=== PATIENT | male | born 1940 | race Caucasian/White ===

== ENCOUNTER 2017-05-04 20:04 | Outpatient (CLI) | payer MEDICARE, OTHER | END 2017-05-04 20:05 | disposition critical access hospital (66) | LOC: EMS 20:04 | PROVIDERS: ATTEND Surgery | DX: R53.1 Weakness (principal) | CPT/HCPCS: A0425; A0429 ==

== ENCOUNTER 2017-05-04 20:21 | Inpatient (IN) | payer MEDICARE, OTHER ==
--- NOTE | 2017-05-04 20:37 | ED Physician Documentation ---
PD HPI FOCAL NEURO - Stated complaint Stated Complaint: ALT LOC - Chief complaint Chief Complaint: Neuro - History obtained from History obtained from: Patient - History of Present Illness Timing - onset: Enter time (16:00), Today Timing - duration: Hours Timing - details: Still present, Still present in ED Time of symptom onset unknown: Time of onset unknown (last "normal" 13:00) Severity of deficit: Moderate Weakness: Face, Arm, Leg, Left Numbness: Face, Left Associated symptoms: Neck pain. No: Headache, Nausea / vomiting, Fall, Head injury, Chest pain, Back pain Contributing factors: negative: Anticoagulated, Vascular dz, Atrial fibrillation Baseline status: positive: A&OX3, ambulatory, indep Similar symptoms before: Has not had sx before Recently seen: Not recently seen - Additional information Additional information: drove to [facility] from [place], [place] today. At approximately 1 PM today, he got out of the car and had no deficits, felt baseline state of health. At approximately 3-4 PM today, he got out of the car again in [place], felt lower extremity weakness. He isn't confident if it was just the left side or bilateral ("I wasn't really paying attention", per patient). Patient had difficulty, due to this weakness, ambulating but managed, with family's help, to check in to the hotel. He then took a nap, awoke approximately 6:30 PM tonight with ongoing LLE weakness, and then noticed LUE weakness, left facial numbness, left facial droop, and mildly slurred speech. Denies headache. He notes posterior neck pain which he attributes to the long hours of driving today. Review of Systems Constitutional: reports: Reviewed and negative Eyes: reports: Reviewed and negative Ears: reports: Reviewed and negative Nose: reports: Reviewed and negative Throat: reports: Reviewed and negative Cardiac: reports: Reviewed and negative Respiratory: reports: Dyspnea. denies: Cough GI: reports: Reviewed and negative : reports: Reviewed and negative Skin: reports: Reviewed and negative Musculoskeletal: reports: Neck pain. denies: Back pain, Extremity pain, Extremity swelling Neurologic: reports: Focal weakness, Numbness, Difficulty speaking. denies: Generalized weakness, Confused, Altered mental status, Headache, Head injury PD PAST MEDICAL HISTORY - Past Medical History Past Medical History: Yes Cardiovascular: Hypertension - Past Surgical History Past Surgical History: No - Present Medications Home Medications: Ambulatory Orders Medication Instructions Recorded Confirmed Aspirin 81 mg PO DAILY 05/04/17 05/05/17 Losartan [Cozaar] 100 mg PO DAILY 05/04/17 05/05/17 Atorvastatin [Lipitor] 40 mg PO QPM #30 tablet 05/05/17 Clopidogrel Bisulfate [Clopidogrel] 75 mg PO DAILY #30 tablet 05/05/17 - Allergies Allergies/Adverse Reactions: Allergies Allergy/AdvReac Type Severity Reaction Status Date / Time No Known Drug Allergies Allergy Verified 05/04/17 20:36 - Living Situation Living Situation: reports: With spouse/s.o. Living Arrangement: reports: At home - Social History Does the pt smoke?: No PD ED PE NORMAL - Vitals Vital signs reviewed: Yes - General General: Alert and oriented X 3, No acute distress, Well developed/nourished - HEENT HEENT: Atraumatic, PERRL, EOMI, Moist mucous membranes - Neck Neck: Supple, no meningeal sign - Cardiac Cardiac: RRR, No murmur, No gallop, No rub - Respiratory Respiratory: No respiratory distress, Clear bilaterally - Abdomen Abdomen: Soft, Non tender - Back Back: No CVA TTP - Derm Derm: Normal color, Warm and dry - Extremities Extremities: Normal ROM s pain, No edema - Neuro Neuro: Alert and oriented X 3 PD ED PE EXPANDED - Neuro Neuro: Weakness (LUE, LLE (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 mild drift both left upper and left lower extremities. ), CN deficit (left facial droop ( lower face only), decreased LTS (lower face only)), Dysarthria NIHSS - Time Time: 20:35 - Level of Consciousness Level of consciousness: (0) Alert, Keenly responsive LOC Questions: (0) Answers both Q's correct LOC Commands: (0) Performs both correctly - Gaze Best Gaze: (0) Normal - Visual Visual: (0) No loss - Facial Palsy Facial Palsy: (1) Minor paralysis - Motor Arms (both separate) Motor Arm (right): (0) No drift Motor Arm (left): (1) Drift - Motor Legs (both separate) Motor Leg (right): (0) No drift Motor Leg (left): (1) Drift - Limb Ataxia Limb Ataxia: (0) Absent - Sensory Sensory: (1) Onjp-wg-egpqjpzn loss (mild decreased LTS left face) - Best Language Best Language: (0) No aphasia - Dysarthria Dysarthria: (1) Cgzr-tm-pffvxapr dysarthria - Extinction and Inattention (formally neg Extinction and inattention: (0) No abnormality - Total Score/Results Total Score/Result: 5 Results - Vitals Vitals: Oxygen O2 Source Room air - EKG (time done) No standard instances Rate: Rate (enter#) (68) Rhythm: NSR [place]: Normal Intervals: Normal [place] QRS: Normal Ischemia: Normal ST segments Other comments: Other comments (PAC) - Labs Labs: Laboratory Tests 05/04/17 05/04/17 05/04/17 21:06 21:06 21:06 WBC 8.2 RBC 4.40 L Hgb 13.8 L Hct 40.1 L MCV 91.1 MCH 31.4 H MCHC 34.5 RDW 12.9 Plt Count 187 MPV 9.6 Neut # 4.8 Lymph # 2.2 Amador # 0.8 Eos # 0.2 Baso # 0.1 Absolute Nucleated RBC 0.00 Nucleated RBCs 0.0 Sodium 138 Potassium 4.0 Chloride 106 Carbon Dioxide 23 Anion Gap 9.0 BUN 24 H Creatinine 1.4 H Estimated GFR (MDRD) 49 L Glucose 156 H Calcium 9.1 Troponin I < 0.04 - Rads (name of study) chest xray Radiology: Prelim report reviewed, See rad report CT head Radiology: Prelim report reviewed, See rad report PD MEDICAL DECISION MAKING - ED course Complexity details: reviewed results, re-evaluated patient (Deficits remain on reevaluation (after tests resulted), no change since initial exam as documented above. D/W Dr. Garcia, will admit to [facility] for further observation/testing.), considered differential, d/w patient - TPA CVA checklist Inclusion crititeria: positive: Sig neuro deficit, CT no bleed. negative: Onset know < 4.5 hr Departure - Departure Disposition: 66 [facility] DC/Xfer Clinical Impression: Cerebrovascular accident (CVA) Qualifiers: Qualified Code(s): I63.9 - Cerebral infarction, unspecified Condition: Stable Discharge Date/Time: 05/04/17 22:54
[2017-05-04 21:22] LABS: CALCIUM 9.1 mg/dL (8.5-10.3); CREATININE 1.4 mg/dL (0.6-1.2)
[2017-05-04 21:28] LABS: BASOPHILS # (AUTO) 0.1 10^3/uL (0.0-0.1); BASOPHILS % (AUTO) 1.1 %; EOSINOPHILS # (AUTO) 0.2 10^3/uL (0.0-0.7); HCT - HEMATOCRIT 40.1 % (42.0-52.0); HGB - HEMOGLOBIN 13.8 g/dL (14.0-18.0); LYMPHOCYTES # (AUTO) 2.2 10^3/uL (1.5-3.5); LYMPHOCYTES % (AUTO) 27.2 %; MEAN CORPUSCULAR HEMOGLOBIN 31.4 pg (27.0-31.0); MEAN CORPUSCULAR HGB CONC 34.5 g/dL (32.0-36.0); MEAN CORPUSCULAR VOLUME 91.1 fL (80.0-94.0); MEAN PLATELET VOLUME 9.6 fL (7.4-11.4); MONOCYTES # (AUTO) 0.8 10^3/uL (0.0-1.0); MONOCYTES % (AUTO) 10.2 %; NEUTROPHILS # (AUTO) 4.8 10^3/uL (1.5-6.6); NEUTROPHILS % (AUTO) 58.5 %; RED CELL DISTRIBUTION WIDTH 12.9 % (12.0-15.0); UNCORRECTED WHITE BLOOD COUNT 8.2 x10^3/uL; WHITE BLOOD COUNT 8.2 x10^3/uL (4.8-10.8)
--- NOTE | 2017-05-04 21:44 | CT Preliminary Report ---
Exam: CT Head W/O IMPRESSION: Generalized age-related cortical atrophic changes without evidence of acute intracranial abnormality. [facility] SITE ID: [id number]
--- NOTE | 2017-05-04 21:46 | XRAY Preliminary Report ---
Exam: XR Chest 2 View PA/LAT IMPRESSION: No acute disease evident. [facility] SITE ID: [id number]
--- NOTE | 2017-05-04 21:47 | CT Report ---
EXAM: CT HEAD EXAM DATE: 05/04/2017 09:29 PM. CLINICAL HISTORY: Left-sided weakness. COMPARISON: None. TECHNIQUE: Multiaxial CT images were obtained from the foramen magnum to the vertex. IV contrast: Non e. Reformats: Coronal. In accordance with CT protocol optimization, one or more of the following dose reduction techniques w ere utilized for this exam: automated exposure control, adjustment of mA and/or KV based on patient s ize, or use of iterative reconstructive technique. FINDINGS: Parenchyma: No intraparenchymal hemorrhage. No evidence of mass, midline shift, or CT findings of acu te infarction. Handy-white differentiation is distinct. Extraaxial Spaces: Normal for age. No subdural or epidural collections identified. Ventricles: The ventricles and cortical sulci are enlarged, consistent with age-related tissue loss. Sinuses: Imaged paranasal sinuses, orbits, and mastoids show no significant abnormality. Bones: No evidence of fracture or calvarial defect. Other: Mild chronic microangiopathic white matter changes are evident. IMPRESSION: Generalized age-related cortical atrophic changes without evidence of acute intracranial abnormality. [facility] Referring Provider Line: [phone] SITE ID: [id number]
--- NOTE | 2017-05-04 21:48 | XRAY Report ---
EXAM: CHEST RADIOGRAPHY EXAM DATE: 05/04/2017 09:37 PM. CLINICAL HISTORY: Left-sided weakness. COMPARISON: None. TECHNIQUE: 2 views. FINDINGS: Lungs/Pleura: No focal opacities evident. No pleural effusion. No pneumothorax. Normal volumes. Mediastinum: Heart and mediastinal contours are unremarkable. Other: Mild, likely chronic, compression fractures of the superior endplates of 2 lower thoracic angoon ents noted. IMPRESSION: No acute disease evident. [facility] Referring Provider Line: [phone] SITE ID: [id number]
[2017-05-04] MEDS ORDERED: HYDROcod/ACETAM 10 MG/325 MG TABLET PO PRN (22:20)
[2017-05-04] MEDS ORDERED: SODIUM CHLORIDE FLUSH 0.9% 10 ML SYRINGE IVP PRN (22:20)
[2017-05-04] MEDS ORDERED: ACETAMINOPHEN 325 MG TABLET PO PRN (22:20)
[2017-05-04] MEDS ORDERED: HYDROcod/ACETAM 5/325 MG TABLET PO PRN (22:20)
[2017-05-05] MEDS: SODIUM CHLORIDE 0.9% 1,000 ML IV SCH ×2 (00:05→08:23)
[2017-05-05] MEDS: SODIUM CHLORIDE FLUSH 0.9% 10 ML SYRINGE IVP SCH ×2 (00:06→11:13)
--- NOTE | 2017-05-05 02:34 | Ultrasound Preliminary Report ---
Exam: US Carotid Doppler Complete IMPRESSION: 1. Bilateral calcified carotid plaquing, left worse than right. No significant stenosis seen. 2. Antegrade flow in both vertebral arteries. Validated velocity measurements with angiographic measurements and velocity criteria are extrapolated from diameter data as defined by the Society of Radiologists in Ultrasound Consensus Conference Radi ology 2003; 229;340-346. [facility] SITE ID: [id number]
--- NOTE | 2017-05-05 02:52 | Ultrasound Report ---
EXAM: CAROTID DOPPLER ULTRASOUND EXAM DATE: 05/05/2017 01:23 AM. CLINICAL HISTORY: Left body and face weak. COMPARISON: None. TECHNIQUE: Real-time sonographic vascular imaging was performed by the image editor through the caroti d arterial system with a linear transducer utilizing color-flow, Doppler flow and spectral analysis. Multiple branch customer service representative static images were saved for review. FINDINGS: There is calcified plaque in the common carotid arteries, carotid bulbs, and proximal internal caroti d arteries bilaterally, left worse than right. Stenosis is less than 50% bilaterally. Antegrade flow is seen in both vertebral arteries. Irregular heart beat is noted. Right: RCCA Prox: PSV 106 cm/sec. RCCA Dist: PSV 89.8 cm/sec, EDV 15.1 cm/sec. RECA: PSV 143 cm/sec. R Bulb: PSV 56.5 cm/sec, EDV 11.1 cm/sec, ICA/CCA ratio 0.6. MITCHEL Prox: PSV 42.5 cm/sec, EDV 9.8 cm/sec, ICA/CCA ratio 0.5. MITCHEL Mid: PSV 59.1 cm/sec, EDV 13.6 cm/sec, ICA/CCA ratio 0.7. MITCHEL Dist: PSV 50.3 cm/sec, EDV 11.1 cm/sec, ICA/CCA ratio 0.6. RVA: PSV 19.8 cm/sec. RVA flow direction: Antegrade. Left: LCCA Prox: PSV 91.4 cm/sec. LCCA Dist: PSV 65.4 cm/sec, EDV 14.9 cm/sec. LECA: PSV 196 cm/sec. L Bulb: PSV 51.0 cm/sec, EDV 13.6 cm/sec, ICA/CCA ratio 0.8. LICA Prox: PSV 56.9 cm/sec, EDV 12.3 cm/sec, ICA/CCA ratio 0.9. LICA Mid: PSV 101.4 cm/sec, EDV 21.0 cm/sec, ICA/CCA ratio 1.6. LICA Dist: PSV 85.9 cm/sec, EDV 16.1 cm/sec, ICA/CCA ratio 1.3. LVA: PSV 15.5 cm/sec. LVA flow direction: Antegrade. Other: None. IMPRESSION: 1. Bilateral calcified carotid plaquing, left worse than right. No significant stenosis seen. 2. Antegrade flow in both vertebral arteries. Validated velocity measurements with angiographic measurements and velocity criteria are extrapolated from diameter data as defined by the Society of Radiologists in Ultrasound Consensus Conference Radi ology 2003; 229;340-346. [facility] Referring Provider Line: [phone] SITE ID: [id number]
[2017-05-05 03:15] LABS: BASOPHILS # (AUTO) 0.1 10^3/uL (0.0-0.1); BASOPHILS % (AUTO) 0.9 %; EOSINOPHILS # (AUTO) 0.2 10^3/uL (0.0-0.7); EOSINOPHILS % (AUTO) 3.2 %; HCT - HEMATOCRIT 38.9 % (42.0-52.0); HGB - HEMOGLOBIN 13.4 g/dL (14.0-18.0); LYMPHOCYTES # (AUTO) 1.9 10^3/uL (1.5-3.5); LYMPHOCYTES % (AUTO) 27.1 %; MEAN CORPUSCULAR HEMOGLOBIN 31.6 pg (27.0-31.0); MEAN CORPUSCULAR HGB CONC 34.4 g/dL (32.0-36.0); MEAN CORPUSCULAR VOLUME 91.9 fL (80.0-94.0); MEAN PLATELET VOLUME 9.6 fL (7.4-11.4); MONOCYTES # (AUTO) 0.7 10^3/uL (0.0-1.0); MONOCYTES % (AUTO) 9.7 %; NEUTROPHILS # (AUTO) 4.2 10^3/uL (1.5-6.6); NEUTROPHILS % (AUTO) 59.1 %; RED BLOOD COUNT 4.24 10^6/uL (4.70-6.10); RED CELL DISTRIBUTION WIDTH 12.7 % (12.0-15.0); UNCORRECTED WHITE BLOOD COUNT 7.1 x10^3/uL; WHITE BLOOD COUNT 7.1 x10^3/uL (4.8-10.8)
--- NOTE | 2017-05-05 03:16 | HISTORY & PHYSICAL EXAMINATION ---
DATE OF ADMISSION: 05/04/2017 PRIMARY CARE PROVIDER: In [place], [place]. ADMITTING PROVIDER: Shikha Garcia MD. CHIEF COMPLAINT: Right body weakness. HISTORY OF PRESENT ILLNESS: He is an exceedingly pleasant, jovial 77-year-old morbidly obese man who drove from [place], [place] today so that he could be at his nephew's senior care constitution party here a t the [employer]. 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 He drove all the way here without any difficulty. He has chronic back pain and has had 3 back surgeries, but pain has been well controlled to his satisfaction for quite some time now. He got out of the car to take a stroll around the car and fill up with gas around 1 in the afternoon and did just fine. Wh en he arrived in [place] in the late afternoon, he realized that his legs were "weak," but he did not feel like 1 leg was necessarily weaker than the other. He went inside the hotel to take a nap and when he woke up, realized that not only was his left leg now weak, but his left body was as well. It took quite some time for the to cajole him into calling EMS for them to bring him here to the ospital. In our emergency room, he has been evaluated by Dr. Soto and he definitely has a left faci al droop, slight dysarthria, and left body weakness. He is hypertensive, between 170-200 systolic. Af ebrile. An initial CT of the head is negative. He is now admitted for stroke. He has no history of at rial fibrillation, congestive heart failure, but does have a history of "multiple small infarcts" on previous MRI. 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 In evaluating this movement d isorder with EEGs, sleep studies, MRIs, neurologists, so far no one has been able to give him the adela gnosis of what this movement disorder is. He just "freezes," but the MRI did show multiple microinfar cts, as far as he knows. He is due to see a neurologist with [facility] in May. PAST MEDICAL HISTORY 1. Hypertension. 2. Morbid obesity for decades. 3. Two episodes of diverticulitis, with the last one resulting in a bowel resection. 4. Bilateral shoulder arthroplasties. 5. Three lumbar spinal surgeries. He actually broke his back the day before his second marriage. He m anaged to cajole those doctors into letting him go to his wedding and then he promptly had such an in tense back spasm that he ended up back in the hospital on his wedding night. 6. Obstructive sleep apnea. ALLERGIES: NO KNOWN DRUG ALLERGIES. MEDICATIONS 1. Cozaar 100 mg a day. 2. Aspirin 81 mg a day. SOCIAL HISTORY: Never smoked and used to drink way too much. He is cagey about telling me how much, b ut he says that he was drunk everyday of his life, but stopped drinking at the age of 42. His poison of choice was beer. 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 He is from his first and to his second for 13 yea rs. He has 4 children from his first , and they lived in [place] and [place]. He has no history of recreational substance abuse. He is a DO NOT RESUSCITATE, DO NOT INTUBATE. FAMILY HISTORY: Both of his parents in their 90s of old age. He has 6 sisters. They all alive an d they are all older than him with only one baby sister. As far as he knows, none of them have had a stroke, heart attack, congestive heart failure, emphysema, cancer, etc. His 4 children are healthy. REVIEW OF SYSTEMS GENERAL: Shows him to be an elderly gentleman who has been slowing down with regards to mobility over the last few years, but is still completely independent with activities of daily living with no ante cedent fever, sweats, or unexpected weight changes. ENT: He is deaf, wears glasses, and denies glaucoma or cataracts. He usually does not have any proble ms with speech or swallowing. PULMONARY: Denies coughing, wheezing, chest congestion. CARDIAC: Denies angina, palpitations, heart murmur, leg edema, orthopnea. GASTROINTESTINAL: Loves his food and has absolutely no problem with eating he tells me. Since he has had his colon resection, bowels have become quite nicely normal, and he has no abdominal discomfort. No blood in his stool. GENITOURINARY: Stream has slowed down, but he has no urgency, frequency, dysur ia. He does not get up at night. He gets up at 5 every day anyway and that is when he goes to the bat hroom. No hematuria or flank pain. JOINTS: Ache. Very stiff after a long car ride and that is why he felt initially that his left leg we akness was that. As already stated, his back has had problems in the past, but he feels that his pain and discomfort are adequately controlled for a gentleman his size and age. Shoulders and hands can b e quite stiff and aching, but again they do not limit him. SKIN: No new rashes, no new moles. PSYCH: Denies anxiety, depression. His murmurs that he "gives" anxiety and depression. 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 Memory loss is occasional and mild, but not alarming to him. 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 PHYSICAL EXAMINATION VITAL SIGNS: His initial blood pressure was 203/85 with a temperature of 36.6, pulse 77, respirations 18, 97% on room air. His highest systolic in the emergency room was 210, and on my exam at this time he is 166/94. GENERAL: He is a tall, morbidly obese white male who looks his stated age with his at the bedsid e in no acute distress. HEAD AND NECK: Remarkable for left facial droop, slightly dry oral mucosa. Speech is slightly dysarth mohan. Neck is supple. No carotid bruits. LUNGS: Clear to auscultation and percussion in quite a large chest wall cavity. CARDIOVASCULAR: PMI is normally placed with a regular rate and rhythm and a soft systolic murmur, byron y faint at the left lower sternal border and apex. ABDOMEN: Hugely obese, soft, nontender. No hernias or masses. Normal bowel sounds. EXTREMITIES: Warm without clubbing, cyanosis, or edema. On the left anterior harris, he has 1 small exc oriation where he bumped his harris, but he cannot remember where. NEUROLOGICAL: He has left body weakness and left facial droop. Weakness is about to 2+/5+. Right body is normal at 5+/5+. He is alert, oriented to person and place. Lucid historian. Remarkably intact co nsidering his events. He says that he does feel unusually emotional and that is weird for him. He has had a chest x-ray, head CT. Chest x-ray shows no acute disease and head CT with generalized ag e-related cortical atrophic changes. Sodium 138, potassium 4, BUN 24, creatinine 1.4, glucose 156, tr oponin less than 0.04. White cell count is 8.2, hemoglobin 13.8, hematocrit 40.4, MCV 91, platelets 1 87. IMAGING: EKG shows sinus rhythm with a PAC. Diffuse borderline low voltage in the limb leads. Otherwi se normal EKG. ASSESSMENT AND PLAN 1. 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 Admit to Med/Surg with telemetry. A llow permissive hypertension with a goal systolic less than 185-188. Aspirin to continue. Statin to b e added. MRI of head in the morning. Carotid Dopplers and CT head angiogram in the morning. The angio gram may be contraindicated depending on how well his creatinine responds to IV fluids. 2. Hypertension. Currently not at goal, but again allow permissive hypertension in the face of a stro ke. We will resume his Cozaar, but not much else. 3. Obstructive sleep apnea. I have notified respiratory therapy and his is bringing his mask in from the car. 4. DO NOT INTUBATE, DO NOT RESUSCITATE status. 5. Deep venous thrombosis prophylaxis with Lovenox. JOB #: [id number] EXT JOB #:[id number]
[2017-05-05 03:26] LABS: ALBUMIN/GLOBULIN RATIO 1.2 (1.0-2.2); BILIRUBIN,TOTAL 0.4 mg/dL (0.2-1.0); CALCIUM 8.5 mg/dL (8.5-10.3); CREATININE 1.3 mg/dL (0.6-1.2); POTASSIUM 3.8 mmol/L (3.5-5.0); TOTAL PROTEIN 6.5 g/dL (6.7-8.2)
[2017-05-05 03:32] LABS: CHOL/HDL RATIO 5.1 (<5.0); CHOLESTEROL 180 mg/dL; HDL CHOLESTEROL 35 mg/dL; LDL/HDL RATIO 3.2 (<3.6); TRIGLYCERIDES 172 mg/dL; VLDL CHOLESTEROL 34 mg/dL
[2017-05-05] MEDS ORDERED: ASPIRIN 325 MG TABLET PO SCH (08:00)
[2017-05-05] MEDS ORDERED: POLYETHYLENE GLYCOL 3350 17 GM PACKET PO SCH (09:00)
[2017-05-05] MEDS ORDERED: LOSARTAN 50 MG TABLET PO SCH (09:00)
--- NOTE | 2017-05-05 09:10 | PROVIDER PROGRESS NOTE ---
Subjective - Prog Note Date Prog Note Date: 05/05/17 Prog Note Time: 09:07 Current Medications - Current Medications Current Medications: Active Medications Generic Name Dose Route Start Last Admin Trade Name Freq PRN Reason Stop Dose Admin Acetaminophen 650 mg 05/04/17 22:20 Tylenol PO Q4HR PRN Pain 1 to 4 Acetaminophen/Hydrocodone Bitart 1 tab 05/04/17 22:20 Ideal 5/325 PO Q4HR PRN Pain 5 to 7 Acetaminophen/Hydrocodone Bitart 1 tab 05/04/17 22:20 Ideal 10 Mg/325 Mg PO Q4HR PRN Pain 8 to 10 Aspirin 325 mg 05/05/17 08:00 05/05/17 08:18 Yue PO 325 mg DAILYWM MADHURI Administration Atorvastatin Calcium 80 mg 05/05/17 21:00 Lipitor PO QPM MADHURI Sodium Chloride 1,000 mls @ 125 mls/hr 05/04/17 23:45 05/05/17 08:23 Normal Saline 0.9% IV 125 mls/hr .Q8H MADHURI Administration Losartan Potassium 100 mg 05/05/17 09:00 05/05/17 08:18 Cozaar PO 100 mg DAILY MADHURI Administration Polyethylene Glycol 17 gm 05/05/17 09:00 05/05/17 08:19 Miralax PO 17 gm DAILY MADHURI Administration Sodium Chloride 10 ml 05/04/17 22:20 Normal Saline Flush 0.9% IVP PRN PRN NEEDED PER PROVIDER ORDERS Sodium Chloride 10 ml 05/05/17 06:00 05/05/17 00:06 Normal Saline Flush 0.9% IVP 10 ml Q8HR MADHURI Administration Aspirin 81 mg PO DAILY 05/04/17 Losartan [Cozaar] 100 mg PO DAILY 05/04/17 Objective - Vital Signs/Intake & Output Reviewed Vital Signs: Yes Vital Signs: Vital Signs x48h Temp Pulse Resp BP Pulse Ox 05/05/17 08:42 36.7 C 64 19 165/91 H 98 Intake & Output: Intake & Output 05/02/17 05/03/17 05/04/17 05/05/17 23:59 23:59 23:59 23:59 Intake Total 1026 Balance 1026 - Objective General Appearance: positive: No acute distress, Other (sitting up in chair eating breakfast , at bedside no acute distress articulate with speech, no dysarthria nor word finding trouble currently) Eyes Bilateral: positive: PERRL, EOMI, Other (glasses, no field deficit) Respiratory: positive: No respiratory distress, Breath sounds nml Cardiovascular: positive: Regular rate & rhythm, No murmur, Other (tele: not yet on (ordered_) Abdomen: positive: Other (generous absomen, + BS, soft nontender) Neurologic/Psychiatric: positive: Oriented x3. negative: Motor nml (RUE strength RLE strength 5/5 LLE strenght hip flxn, dorsi/plantar flxn, knee flex/ext 5/5 LUE strength chairman president and chief executive officer , add/ab duction shouler, elbow flex/ext all 5/5 . Rapid alt movements; finger to nose and finger serially to thumb on L is somewhat awkward c/w right L protatro drift) - Lab Results Fish Bones: 05/05/17 03:08 05/05/17 03:08 Other Labs: Lab Results x24hrs 05/05/17 05/05/17 05/05/17 Range/Units 03:08 03:08 03:08 WBC (4.8-10.8) x10^3/uL RBC (4.70-6.10) 10^6/uL Hgb (14.0-18.0) g/dL Hct (42.0-52.0) % MCV (80.0-94.0) fL MCH (27.0-31.0) pg MCHC (32.0-36.0) g/dL RDW (12.0-15.0) % Plt Count (130-450) 10^3/uL MPV (7.4-11.4) fL Neut # (1.5-6.6) 10^3/uL Lymph # (1.5-3.5) 10^3/uL Lamar # (0.0-1.0) 10^3/uL Eos # (0.0-0.7) 10^3/uL Baso # (0.0-0.1) 10^3/uL Absolute Nucleated RBC x10^3/uL Nucleated RBCs /100WBC Sodium 136 (135-145) mmol/L Potassium 3.8 (3.5-5.0) mmol/L Chloride 107 (101-111) mmol/L Carbon Dioxide 21 (21-32) mmol/L Anion Gap 8.0 (6-13) BUN 24 H (6-20) mg/dL Creatinine 1.3 H (0.6-1.2) mg/dL Estimated GFR (MDRD) 54 L (>89) Glucose 185 H (70-100) mg/dL Calcium 8.5 (8.5-10.3) mg/dL Total Bilirubin 0.4 (0.2-1.0) mg/dL AST 15 (10-42) IU/L ALT 15 (10-60) IU/L Alkaline Phosphatase 54 (42-121) IU/L Troponin I < 0.04 (<0.49) ng/mL Total Protein 6.5 L (6.7-8.2) g/dL Albumin 3.6 (3.2-5.5) g/dL Globulin 2.9 (2.1-4.2) g/dL Albumin/Globulin Ratio 1.2 (1.0-2.2) Triglycerides 172 H ( - 149) mg/dL Cholesterol 180 ( - 199) mg/dL LDL Cholesterol, Calc 111 ( - 129) mg/dL VLDL Cholesterol 34 mg/dL HDL Cholesterol 35 L (60 - ) mg/dL LDL/HDL Ratio 3.2 (<3.6) Cholesterol/HDL Ratio 5.1 (<5.0) 06/16/17 Range/Units 03:08 WBC 7.1 (4.8-10.8) x10^3/uL RBC 4.24 L (4.70-6.10) 10^6/uL Hgb 13.4 L (14.0-18.0) g/dL Hct 38.9 L (42.0-52.0) % MCV 91.9 (80.0-94.0) fL MCH 31.6 H (27.0-31.0) pg MCHC 34.4 (32.0-36.0) g/dL RDW 12.7 (12.0-15.0) % Plt Count 166 (130-450) 10^3/uL MPV 9.6 (7.4-11.4) fL Neut # 4.2 (1.5-6.6) 10^3/uL Lymph # 1.9 (1.5-3.5) 10^3/uL Lamar # 0.7 (0.0-1.0) 10^3/uL Eos # 0.2 (0.0-0.7) 10^3/uL Baso # 0.1 (0.0-0.1) 10^3/uL Absolute Nucleated RBC 0.00 x10^3/uL Nucleated RBCs 0.0 /100WBC Sodium (135-145) mmol/L Potassium (3.5-5.0) mmol/L Chloride (101-111) mmol/L Carbon Dioxide (21-32) mmol/L Anion Gap (6-13) BUN (6-20) mg/dL Creatinine (0.6-1.2) mg/dL Estimated GFR (MDRD) (>89) Glucose (70-100) mg/dL Calcium (8.5-10.3) mg/dL Total Bilirubin (0.2-1.0) mg/dL AST (10-42) IU/L ALT (10-60) IU/L Alkaline Phosphatase (42-121) IU/L Troponin I (<0.49) ng/mL Total Protein (6.7-8.2) g/dL Albumin (3.2-5.5) g/dL Globulin (2.1-4.2) g/dL Albumin/Globulin Ratio (1.0-2.2) Triglycerides ( - 149) mg/dL Cholesterol ( - 199) mg/dL LDL Cholesterol, Calc ( - 129) mg/dL VLDL Cholesterol mg/dL HDL Cholesterol (60 - ) mg/dL LDL/HDL Ratio (<3.6) Cholesterol/HDL Ratio (<5.0) - Diagnostic Imaging Diagnostic Imaging Results: positive: Final report reviewed (Radiologist called + stroke on MRI findings consistent w/ recent or acute right deep brain small vessel b2b sales professional ischemic infarcts The component of infarct in basal ganglia is ~ 1cm, similar dimensions of contiguous more superior medial R corono radiata omponent of infarct severe chronic appearing nonspecific cerebral white matter disease. ; likely sequaelae of chronic , some abnormal hyperintensity also present in justin Carotid ultrasound:bilateral carotid placque L> R , , 50%, no hemdynamically significant flow reduction CTangio head ; atherosclerotic dz in carotid siphons bilaterally w/o assoiaed hemodynamically significant ICA stenosis. No occlusion or HD significant stenosis of main branches of anterior or posteroi circulation. 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 Moderate concentric LVH. EF 50-55% (lower end of normal) Grade I diastolic dysfunction. No WMA Valves: no , no aortic regur, mild MR,trace pulmonic regurg Assessment/Plan - Problem List (1) Cerebrovascular accident (CVA) Impression: See detailed discharge summary from todays same date symptoms improving, but still Left UE weakness, MRI pending telemetry started (HR regular); will monitor for possible dysrhtymia echo (not yet ordered) on ASA; change to plavix (if + stroke on MR, will d/w stroke service (DAPT x 1 month) statin permissive HTN ; he did get his losartan, today alreaady; Qualifiers: CVA mechanism: unspecified Qualified Code(s): I63.9 - Cerebral infarction, unspecified
[2017-05-05] MEDS ORDERED: IOPAMIDOL-300 100 ML VIAL IVP ONE (09:30)
[2017-05-05] MEDS ORDERED: ENOXAPARIN 40 MG/0.4 ML SYRINGE SUBQ SCH ×2 (10:00→12:00)
--- NOTE | 2017-05-05 10:42 | CT Preliminary Report ---
Exam: CT Head Angio Impression: Head CT Stable when compared to examination from yesterday. No acute intracranial pathology is demonstrated. In particular, there is no intracranial hemorrhage and no evidence of acute, large vessel territory c ortical infarction. CT angiogram and 1. There is atherosclerotic disease in the carotid siphons bilaterally without evidence of associated , hemodynamically significant ICA stenosis. 2. Otherwise unremarkable intracranial CT angiogram. In particular, no evidence of occlusion or hemod ynamically significant stenosis affecting main branches of the anterior or posterior circulations. SITE ID: [id number]
--- NOTE | 2017-05-05 11:24 | MRI Preliminary Report ---
Exam: MRI Brain W/O IMPRESSION: Small acute appearing right deep brain poultry cleaner infarcts. Critical test results communicated by telephone to the on duty provider Roxanne Wells at 11:20 AM 0 05/05/2017. [facility] SITE ID: [id number]
--- NOTE | 2017-05-05 11:37 | MRI Report ---
EXAM: MRI BRAIN WITHOUT CONTRAST EXAM DATE: 05/05/2017 11:08 a.m. CLINICAL HISTORY: Acute stroke symptoms including left body weakness and left facial droop. Persisten t left arm weakness. COMPARISON: No prior MRI. TECHNIQUE: Multiplanar, multisequence T1-weighted and fluid-sensitive MR sequences of the brain were performed. Sequences optimized for routine evaluation. Other: None. IV Contrast: None. FINDINGS: Brain Volume: Mild to moderate diffuse atrophy. Parenchyma/Dura: Patchy and confluent restricted diffusion in the right deep brain involving the righ t garibay radiata and posterior right basal ganglia region. These findings are consistent with recent or acute right deep brain small vessel medical chief technician ischemic infarcts. The component of the infarct in the basal ganglia region is about 1 cm, similar dimensions of the contiguous more superior and medial right garibay radiata component of infarct. No hemorrhage or mass effect. No midline shift. Severe chronic-appearing nonspecific cerebral white matter disease. White matter changes are nonspeci fic but likely contributed to by aging and chronic small vessel ischemic disease. Patchy and nodular abnormal T2 hyperintensity are also present in the justin. Ventricles/Cisterns: Ventriculomegaly, more likely from atrophy than hydrocephalus. Sinuses: Negligible paranasal sinus and mastoid mucosal thickening. Bones: No focal pathologic appearing marrow signal changes in the skull or clivus. Other: None. IMPRESSION: Small acute appearing right deep brain medical chief technician infarcts. Critical test results communicated by telephone to the on duty provider, Roxanne Wells, at 11:20 a. m., 05/05/2017. [facility] Referring Provider Line: [phone] SITE ID: [id number]
--- NOTE | 2017-05-05 12:18 | Discharge Plan ---
Discharge Plan Disposition: 01 Home, Self Care Condition: Stable Prescriptions: Clopidogrel Bisulfate [Clopidogrel] 75 mg PO DAILY #30 tablet Atorvastatin [Lipitor] 40 mg PO QPM #30 tablet Diet: Low Sodium Activity Restrictions: No Restrictions Shower Restrictions: No Driving Restrictions: Yes (For the long drive back to [place], you should be the passenger until follow up) Weight Bearing: Full Weight Additional Instructions or Follow Up instructions: You came to the hospital with left sided weakness, facial droop and some dysarthria (difficulty speaking) suspicious for stroke Imaging studies; -CT brain showed no brain bleed, did not show acute stroke (CT often does not show stroke that is acute) MRI of the brain showed acute stroke and extensive older chronic white matter changes (also considered "mini strokes" that correspond with chronically elevated blood pressure The acute stroke area is in the right deep brain (right garibay radiata and posterior right basal ganglia region). -Brain CT angiogram; old lacunar infarcts (old small vessel strokes) on CT atherosclerotic disease in the carotid siphons bilaterally with no evident associated hemodynamicaly significant ICA stenosis. No occlusion or hemodynamically significatn stnosis affecting main branches of anterior or posterior circulation -Heart echocardiogram; normal Left Ventricle size and function. Moderate concentric Left ventricle hypertrophy. EF 50-55% (lower end of normal) Grade I diastolic dysfunction. No Wall Motion Abnormalities Valves: no Aortic Stenosis, no aortic regurgitation, trace to mild mitral regurgitation trace pulmonic regurgurgitation -Carotid ultrasound: bilateral calcified plaquing, left worse than right, no significant stenosis. < 50% plaque bilaterally -Neurology recommendation We spoke with a neurologist at [facility] who recommended Dual anti platelet therapy x 1 month (Aspirin 81 mg daily AND Plavix 75 mg daily) (since you were already on aspirin) and follow up with stroke specialist for further recommendation and to add statin, and need better blood pressure control "Permissive hypertension" is ok for the next few days. (allows the body to send more blood to the area surrounding the stroke Ok to take your losartan, but within ~ 1 week, your PCP should add another agent -You should be evaluated for diabetes by your PCP ( your fasting glucose was 185 -Your cholesterol total was 180, LDL 111 HDL 35 Triglycerides 172 -CDs of your MRI, CTangiogram of the brain , and carotid ultrasound can be brought to the stroke specialist/neurologist you follow up with Follow up ; see your PCP for followup early next week for additional blood pressure drug, referral if needed for stroke specialist, work up for possible early diabetes, follow up on cholesterol in a few months (started you on a "medium" dose of atorvastatin) No Smoking: If you smoke, Please STOP! Call for help.
--- NOTE | 2017-05-05 12:47 | CT Report ---
CT HEAD WITHOUT AND WITH CONTRAST AND CT ANGIOGRAM HEAD EXAM DATE: 05/05/2017. INDICATION: 77-year-old male with left facial weakness and left body weakness. Please assess. COMPARISON: Unenhanced head CT 05/04/2017. TECHNIQUE: Head CT: Sequential 5 mm axial images were obtained through the brain, prior to and following the CT angiogram . CT Angiogram Head: 100 cc of Isovue-300 contrast was injected at a rapid rate through a large-bore, antecubital intraven ous catheter. The head was scanned helically during arterial phase. Data was reconstructed into 0.5 m m axial images. In addition, MIP reconstructions have been generated in multiple projections to allow better assessment of the intracranial arteries. In accordance with CT protocol optimization, one or more of the following dose reduction techniques w ere utilized for this exam: automated exposure control, adjustment of mA and/or KV based on patient s ize, or use of iterative reconstructive technique. FINDINGS: HEAD CT: There is a stable pattern of generalized, age-appropriate cerebral volume loss with associated, ex va cuo ventriculomegaly. Small hypodensities are again demonstrated in right subinsular region and poste rior right putamen, consistent with old, lacunar type infarctions. There is a [id number] amount of white matter disease in the supratentorial brain, manifested as ill-defined areas of low-attenuat ion in the periventricular, deep and subcortical white matter bilaterally. A frontoparietal distribut ion predominates. This most likely represents chronic microangiopathy. Attenuation of cortex and whit e matter is otherwise unremarkable. No evidence of acute, large vessel territory cortical infarction. No intracranial hemorrhage or abnormal extra-axial fluid collection. No enhancing intra-axial or extra-axial mass lesion is demonstrated. There appears to be normal intra vascular contrast enhancement in the dural venous sinuses and deep venous structures. The mastoid air cells and middle ear cavities are clear. The imaged paranasal sinuses appear clear. CT ANGIOGRAM HEAD: Anterior Circulation: There is calcified atherosclerotic plaque scattered throughout the carotid siphons bilaterally. Evalu ation for associated stenosis is difficult, particularly given the quite marked tortuosity in the car otid siphons. However, no obvious, hemodynamically significant narrowing is demonstrated. No ICA aneu rysm is identified. The A1 segment of the left anterior cerebral artery is hypoplastic with dominant right A1 segment. An anterior communicating artery is demonstrated. There is good filling of the A2 a nd distal SHIKHA branches bilaterally. No obvious SHIKHA branch occlusion is demonstrated. The middle cerebral arteries are unremarkable. No aneurysm is demonstrated and there is no evidence o f occlusion or hemodynamically significant stenosis affecting main branches of either MCA. There appe ar to be a similar number of opacified M3 and M4 branches bilaterally. Posterior Circulation: The right vertebral artery is hypoplastic but patent. The right PICA is patent. No aneurysm at its or igin. Dominant left vertebral artery demonstrates minor atherosclerotic plaque without significant as sociated stenosis. There appears to be a tiny left PICA. It has a very low origin. The basilar artery , superior cerebellar arteries and main branches of the posterior cerebral arteries are patent. Dista l GAS STATION CLERK branches are somewhat difficult to assess due to overlapping venous structures. However, there is at least mild narrowing in distal P2 segment and mild to moderate narrowing in proximal P3 segment (see images 71 and 70 of series 15). There are small patent posterior communicating arteries bilater ally. No aneurysms are demonstrated arising from the basilar artery trunk or apex. IMPRESSION: Head CT: Stable when compared to examination from yesterday. No acute intracranial pathology is demonstrated. In particular, there is no intracranial hemorrhage and no evidence of acute, large vessel territory c ortical infarction. CT Angiogram Head: 1. There is atherosclerotic disease in the carotid siphons bilaterally without evidence of associated , hemodynamically significant ICA stenosis. 2. Otherwise unremarkable intracranial CT angiogram. In particular, no evidence of occlusion or hemod ynamically significant stenosis affecting main branches of the anterior or posterior circulations. Referring Provider Line: [phone] SITE ID: [id number]
[2017-05-05 18:37] VITALS: BP 175/86
[2017-05-05] MEDS ORDERED: ATORVASTATIN 40 MG TABLET PO SCH (21:00)
--- NOTE | 2017-05-08 08:26 | DISCHARGE SUMMARY ---
DATE OF ADMISSION: 05/04/2017 DATE OF DISCHARGE: 05/05/2017 PRIMARY CARE PROVIDER: Provider is in [place], [place], and he is actually states he is looking for a new one. PRIMARY DISCHARGE DIAGNOSES 1. 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 2. Uncontrolled hypertension. 3. Hyperlipidemia. CONSULTATIONS: An informal ljnn-kpu-wjzuw consultation with Dr. Peterson from [facility]. PROCEDURES: None. DIAGNOSTIC IMAGING STUDIES #1: CT OF THE HEAD 05/04/2017: Generalized age-related cortical atrophic changes. No evidence of acute intracranial abnormality; specifically no bleed, no mass, no midline shift. #2: MRI OF THE BRAIN 05/05/2017 FINDINGS 1. Small acute-appearing right deep brain automobile service station mechanic infarct, specifically in the basal ganglia about 1 cm, as well as similar dimensions of the contiguous more superior medial right garibay radiata. MRI also shows severe chronic- appearing nonspecific cerebral white matter disease, likely the sequelae of small-vessel ischemic disease. #3: CT ANGIOGRAM OF THE HEAD: There is atherosclerotic disease in the carotid siphons bilaterally without evidence of associated hemodynamically significant intracranial artery stenosis. No evidence of occlusion or hemodynamically significant stenosis of the main branches of the anterior or posterior circulation. #4: CAROTID DUPLEX: Calcified plaque in the bilateral common carotid arteries, left worse than right, with stenosis less than 50% bilaterally antegrade flow in both vertebral arteries. An irregular heart beat is noted on the Doppler study, and this was only PACs on telemetry. #5: ECHOCARDIOGRAM DONE 05/05/2017: Moderate concentric left ventricular hypertrophy. EF is at the lower limit of normal with an EF of 50% to 55%, grade 1 diastolic dysfunction; no wall motion abnormalities. Valves are unremarkable with trace to mild mitral regurgitation, trace pulmonic regurgitation, trace tricuspid regurgitation, and right ventricular systolic pressure of 31 mmHg. DIAGNOSTIC LABORATORY STUDIES CHEMISTRIES: Sodium 138, potassium 4.0, chloride 106, bicarbonate 23, BUN 24, creatinine 1.4. After hydration, labs were essentially unchanged with a creatinine of 1.3. Troponin was less than 0.04 x3. Total cholesterol 180, triglycerides 172, HDL 35, and LDL 111. CBC ON ADMISSION: White count 8.2, hemoglobin and hematocrit 13.8 and 40.1; platelets 187,000 with very mild dilutional changes on a repeat study. BRIEF HOSPITAL COURSE BY PROBLEM PROBLEM #1: Acute stroke. The patient is a gentleman from [place], [place], who drove to the [facility] with his for a prison partially of a nephew in the [place]. Please see Dr. Garcia's discharge dictation from 05/04/2017. At some point during the drive, the patient noted some left- sided weakness which he attributed to sitting in the car for a prolonged period. However, on presentation to the emergency room, his exam was highly suspicious for stroke. He did have dysarthria, as well as a left-sided facial droop and right-sided weakness. Initial CT showed no bleed and also no stroke. Subsequent MRI did show acute deep brain small-vessel ischemic infarct in the region of the basal ganglia and the right garibay radiata as well as chronic findings of small vessel ischemic disease which he says he was aware and has fdc poorly controlled hypertension. During the period of observation, he did have improvement in his symptoms with a near-complete resolution of the left facial droop, no trouble speaking. He was examined by Speech Language Pathology and had no difficulty swallowing. He did have very mild residual left hand discoordination, and his lower extremity weakness had resolved. He has very mild impairment of the rapid alternating movements on the left, including bxjiwr-tq-[id number], which he has to do very deliberately on the left, as well as the [id number]. The radiologist indicated there was no acute finding in the cerebellum. However, chronic- appearing changes are also evident in the justin with "patchy and nodular abnormal T2 hyperintensity in the justin, consistent with small-vessel ischemic disease." The patient has had longstanding hypertension, and he has been told in the past that he does have the small-vessel ischemic changes. He was only on losartan at the time of presentation. For the short time he has permissive hypertension with a systolic in the upper 180s; he is aware that he needs to see his primary care physician very shortly on return to [place] for further management of his blood pressure. His neurologic imaging studies were discussed with Dr. Peterson from [facility]. She advised 1 month of dual antiplatelet therapy with the addition of Plavix to his aspirin and follow up with a stroke specialist, and also recommended the addition of a statin which had already been done, and better blood pressure management. Of note, his glucoses were mildly elevated. He had a fasting in the middle of the night of 185, and he is aware he needs to have an outpatient evaluation for possible incipient diabetes. PROBLEM #2: Hypertension. As above, he has long-term poorly controlled hypertension with obvious sequelae. He is continuing on his losartan at the time of discharge and needs to follow up with his primary provider. Dr. Peterson had indicated, since there are no specific needs, physical therapy, occupational therapy, or speech, and the deficits are resolving, that he was safe for discharge. DISCHARGE MEDICATIONS He continues on his: 1. Losartan 100 mg once daily. 2. Aspirin 81 mg once daily. 3. New prescription for Plavix 75 mg once daily. 4. New prescription for atorvastatin 40 mg once each evening. The patient indicates he had been on a statin before, he had tried Pravachol and atorvastatin but stopped them due to itching. He was advised that a statin is highly indicated, and I am starting him on only a medium dose. His PCP can evaluate other statins or other cholesterol medications. PHYSICAL EXAMINATION ON THE DAY OF DISCHARGE VITAL SIGNS: Afebrile at 36.6, heart rate 65, blood pressure 175/86, respiratory rate 18, 96% oxygenation on room air. GENERAL: The patient is a very heavy-set gentleman, sitting up in a chair at the bedside. He is in no acute distress. He is alert, oriented, and appropriate , and articulate in conversation. HEAD, EARS, EYES, NOSE, AND THROAT: His pupils are equal and reactive. Extraocular movements are intact. There is no nystagmus. 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 His tongue is midline, and cranial nerves are otherwise intact. Rapid alternating movements are somewhat slow and deliberate on the left, including canuwo-tl-yqly and serial vjizsz-rh-cxvce. He does heel- harris without any difficulty. He was evaluated by Physical Therapy and was ambulating in the room without difficulty. He also was seen by Speech Language Pathology, when I was in the room, I saw him eating without difficulty, and she notes that his swallow structures and functions are within normal limits and can eat regular diet and liquids. CHEST: He has unlabored respirations at rest. His chest is clear to auscultation. CARDIOVASCULAR: Regular S1, S2 with no appreciable extra sounds. On telemetry, he has normal sinus rhythm with a rate of approximately 60 with rare extrasystole. There is no appreciable murmur. ABDOMEN: Obese and otherwise benign. EXTREMITIES: Notable for no edema. NEUROLOGIC: Exam as noted above. DISCHARGE INSTRUCTIONS: On discharge, the patient was given a CD of his carotid ultrasound, MRI, and CT angiogram for followup with a neurologist or stroke specialist in [place]. He was also advised, since he was the one who had done the driving and had an acute stroke, that certainly his should be the one doing the driving back to [place]. JOB #: [id number] EXT JOB #:[id number]
== END 2017-05-05 18:37 | disposition home or self-care (01) | DRG 65 ==
LOC: EDSEX → ED 20:21 → MS 22:20
PROVIDERS: ADMIT Specialist; ATTEND Nurse Practitioner
DX: I63.9 Cerebral infarction, unspecified (principal); G81.94 Hemiplegia, unspecified affecting left nondominant side; R47.1 Dysarthria and anarthria; R20.9 Unspecified disturbances of skin sensation; R29.810 Facial weakness; R29.705 NIHSS score 5; I10 Essential (primary) hypertension; E78.5 Hyperlipidemia, unspecified; R73.9 Hyperglycemia, unspecified; E66.01 Morbid (severe) obesity due to excess calories; G89.29 Other chronic pain; M54.9 Dorsalgia, unspecified; G47.33 Obstructive sleep apnea (adult) (pediatric); Z66 Do not resuscitate; Z90.49 Acquired absence of other specified parts of digestive tract; Z96.612 Presence of left artificial shoulder joint; Z86.73 Personal history of transient ischemic attack (TIA), and cerebral infarction without residual deficits; Z79.82 Long term (current) use of aspirin; Z96.611 Presence of right artificial shoulder joint; Z68.32 Body mass index [BMI] 32.0-32.9, adult
CPT/HCPCS: 36415; 70450; 70496; 70551; 71020; 80048; 80053; 80061; 84484; 85025; 93005; 93010; 93306; 93880; 99285